=== PATIENT | female | born 1975 | race African-American/Black ===

== ENCOUNTER 2017-11-23 10:29 | Inpatient (IN) | payer MEDICARE, MEDICAID ==
[~2017-11-23] VITALS: Ht 175.3 cm; Wt 95.3 kg
[2017-11-23] MEDS ORDERED: ONDANSETRON HCL 4MG/2ML INJ IV STA (11:55)
[2017-11-23] MEDS ORDERED: SODIUM CHLORIDE 0.9% 1,000 ML IV ONE (11:55)
[2017-11-23 12:18] LABS: HEMATOCRIT. 26.9 % (36.0-48.0); MEAN CORPUSCULAR HEMOGLOBIN 31.2 pg (28.0-32.0); MEAN PLATELET VOLUME 7.2 fl (7.4-10.4); PLATELET 293 x1000/uL (130-400); RED CELL DISTRIBUTION WIDTH 19.5 % (11.6-14.6)
[2017-11-23 12:30] LABS: INR 1.1; PARTIAL THROMBOPLASTIN TIME 26.8 sec (23.4-31.0); PROTHROMBIN TIME 11.2 sec (9.1-11.1)
[2017-11-23 12:33] LABS: CHLORIDE 96 mEq/L (98-107)
[2017-11-23 12:38] LABS: HCG SCREEN NEGATIVE
[2017-11-23 13:01] LABS: PLATELET ESTIMATE NORMAL
[2017-11-23] MEDS ORDERED: MORPHINE SULFATE 4 MG/ML CPJ (NOT FOR IM USE) IV ONE (15:00)
[2017-11-23] MEDS ORDERED: ONDANSETRON HCL 4MG/2ML INJ IV ONE (15:00)
[2017-11-23 15:50] LABS: CLARITY URINE CLEAR (CLEAR); COLOR URINE YELLOW (YELLOW); KETONES URINE 3+ (NEGATIVE); LEUKOCYTE ESTERASE URINE NEGATIVE (NEGATIVE); NITRITE URINE NEGATIVE (NEGATIVE); OCCULT BLOOD URINE TRACE (NEGATIVE); PROTEIN URINE 1+ (NEGATIVE); SPECIFIC GRAVITY URINE 1.023 (1.005-1.030)
[2017-11-23 16:29] LABS: *AMPHETAMINES SCREEN URINE NEGATIVE (NEGATIVE); *BARBITURATES SCREEN URINE NEGATIVE (NEGATIVE); *BENZODIAZEPINES SCREEN URINE NEGATIVE (NEGATIVE); *COCAINE SCREEN URINE NEGATIVE (NEGATIVE); METHADONE URINE SCREEN NEGATIVE (NEGATIVE); OPIATES URINE SCREEN NEGATIVE (NEGATIVE)
[2017-11-23 16:30] LABS: PHENCYCLIDINE URINE SCREEN NEGATIVE (NEGATIVE)
[2017-11-23 16:51] LABS: CANNABINOID URINE SCREEN PRESUMTIVE POSITIVE (NEGATIVE)
[2017-11-23 18:00] VITALS: BP 133/67
[2017-11-23] MEDS ORDERED: LORAZEPAM 0.5MG TABLET PO PRN (18:00)
[2017-11-23] MEDS ORDERED: MAGNESIUM/ALUMINUM HYDROXIDE/SIMETHICONE 30ML UDC PO PRN (18:00)
[2017-11-23] MEDS ORDERED: IPRATROPIUM/ALBUTEROL 0.5-3(2.5)MG/3ML NEB INH PRN (18:00)
[2017-11-23] MEDS ORDERED: ACETAMINOPHEN 325MG TABLET PO PRN (18:00)
[2017-11-23] MEDS ORDERED: CLONIDINE 0.1MG TABLET PO PRN (18:00)
[2017-11-23] MEDS ORDERED: NITROGLYCERIN 0.4MG TABLET SL SL PRN (18:00)
[2017-11-23] MEDS ORDERED: GUAIFENESIN 200MG/10ML SUGAR FREE UDC PO PRN (18:00)
[2017-11-23] MEDS ORDERED: ZOLPIDEM TARTRATE 5MG TABLET PO PRN (18:00)
[2017-11-23] MEDS ORDERED: ONDANSETRON HCL 4MG/2ML INJ IV PRN (18:00)
[2017-11-23] MEDS: SODIUM CHLORIDE 0.9% 1,000 ML IV SCH (18:34)
[2017-11-23 20:00] VITALS: BP 137/77
[2017-11-23] MEDS ORDERED: NA PHOS,M-B/NA PHOS,DI-BA ENEMA 118ML PR PRN (21:00)
[2017-11-23] MEDS: SUCRALFATE 1 G/10 ML UDC PO SCH (21:39)
[2017-11-23] MEDS: TRAMADOL 50MG TABLET PO PRN (21:40)
[2017-11-23 23:00] VITALS: BP 137/77
[2017-11-24] VITALS: BP 135/67
[2017-11-24 04:00] VITALS: BP 119/77
[2017-11-24] MEDS: SODIUM CHLORIDE 0.9% 1,000 ML IV SCH (05:15)
[2017-11-24] MEDS: SUCRALFATE 1 G/10 ML UDC PO SCH ×2 (06:15→11:45)
[2017-11-24] MEDS: TRAMADOL 50MG TABLET PO PRN ×2 (06:15→11:46)
[2017-11-24 08:00] VITALS: BP 126/68
[2017-11-24] MEDS ORDERED: PANTOPRAZOLE SODIUM 40 MG/VIAL IV SCH (09:00)
[2017-11-24 12:00] VITALS: BP 156/96
[2017-11-24] MEDS ORDERED: CHLORHEXIDINE GLUCONATE 4% EXTERNAL USE TOP NR (13:00)
[2017-11-24 13:06] VITALS: BP 156/96
== END 2017-11-24 16:44 | disposition home or self-care (01) | DRG 392 ==
LOC: ER 13:21 → EDBEDREQ 15:46 → ENRESERV 16:23 → 6EST 17:53
PROVIDERS: ADMIT Internal Medicine; ATTEND Internal Medicine
DX: K29.70 Gastritis, unspecified, without bleeding (principal); F12.10 Cannabis abuse, uncomplicated; D64.9 Anemia, unspecified; Z71.51 Drug abuse counseling and surveillance of drug abuser; Z88.9 Allergy status to unspecified drugs, medicaments and biological substances; Z76.5 Malingerer [conscious simulation]
CPT/HCPCS: 36415; 74176; 80305; 84703; 96361; 96374; 96375; 96376; 99285; C9113; J2270; J2405; J7030

== ENCOUNTER 2017-12-10 08:16 | Emergency (ER) | payer MEDICARE, MEDICAID ==
[~2017-12-10] VITALS: Ht 175.3 cm; Wt 95.0 kg
[2017-12-10] MEDS ORDERED: DEXAMETHASONE 10 MG/ML VIAL IM ONE (09:30)
[2017-12-10] MEDS ORDERED: MORPHINE SULFATE 15MG TABLET SR PO ONE (09:30)
[2017-12-10 14:01] VITALS: BP 126/72
== END 2017-12-10 14:44 | disposition home or self-care (01) ==
LOC: ER 08:35
DX: M10.9 Gout, unspecified (principal)
CPT/HCPCS: 73610; 81025; 93970; 96372; 99284; J1100

== ENCOUNTER 2017-12-12 20:13 | Emergency (ER) | payer MEDICARE, MEDICAID ==
[~2017-12-12] VITALS: Ht 175.3 cm; Wt 95.0 kg
[2017-12-12 20:24] VITALS: BP 144/85
== END 2017-12-12 21:49 | disposition left against medical advice (07) ==
LOC: ER 20:13
DX: M79.672 Pain in left foot (principal); M79.671 Pain in right foot; Z53.21 Procedure and treatment not carried out due to patient leaving prior to being seen by health care provider

== ENCOUNTER 2018-11-23 17:01 | Emergency (ER) | payer MEDICARE, MEDICAID ==
[~2018-11-23] VITALS: Ht 177.8 cm; Wt 82.0 kg
[2018-11-23 17:10] VITALS: BP 0/0
== END 2018-11-23 18:41 | disposition left against medical advice (07) ==
LOC: ER 17:01
DX: L02.213 Cutaneous abscess of chest wall (principal); R45.1 Restlessness and agitation; F10.129 Alcohol abuse with intoxication, unspecified; Z88.6 Allergy status to analgesic agent; Z98.890 Other specified postprocedural states; Y90.9 Presence of alcohol in blood, level not specified
CPT/HCPCS: 99283